=== PATIENT | female | born 1940 | race Caucasian/White ===

== ENCOUNTER 2023-09-29 11:55 | Inpatient (IN) | payer MEDICARE, MEDICAID ==
[~2023-09-29] VITALS: Ht 152.4 cm; Wt 64.0 kg
[~2023-09-29 11:55] MED LIST: CEFT2VIA60 IV; DOXY-354 PO
[2023-09-29] MEDS ORDERED: NALOXONE HCL 1 MG/ML 2 ML SYRINGE IVP ONE (12:00)
[2023-09-29] MEDS ORDERED: FUROSEMIDE 40 MG/4 ML VIAL IVP ONE (12:00)
[2023-09-29 12:22] LABS: ABG CARBOXYHEMOGLOBIN 0.4 % (0.0-1.5); ABG HCO3 18.4 mmol/L (22.0-26.0); ABG METHEMOGLOBIN 0.1 % (0.0-1.5); ABG OXYGEN CONTENT 14.2 mL/dL (15.0-23.0); ABG OXYGEN SATURATION 93.4 % (95.0-98.0); ABG OXYHEMOGLOBIN 92.9 % (94.0-100.0); ABG PCO2 57 mmHg (35-45); ABG PH 7.187 (7.35-7.450); ABG TOTAL HEMOGLOBIN 10.8 G/dL (12.0-18.0); PO2, ARTERIAL BG 64.6 mmHg (71.0-79.0); SOURCE, BLOOD GAS ARTERIAL; TEMPERATURE, FAHRENHEIT, BG 93.5 FAHREN (96.0-98.6)
[2023-09-29 12:23] LABS: O2 DEVICE,BLOOD GAS CANNULA (ROOM AIR); SITE, BLOOD GAS RT BRACHIAL
[2023-09-29 12:36] LABS: BASOPHILS % (AUTO) 0.1 % (0.0-2.0); EOSINOPHILS % (AUTO) 0 % (1.0-6.0); HEMATOCRIT 29.3 % (36-46); HEMOGLOBIN 9.7 g/dL (12.0-16.0); LYMPHOCYTES # (AUTO) 0.1 K/uL (1.0-4.8); MEAN CORPUSCULAR HEMOGLOBIN 30.9 pg (26.0-34.0); MEAN CORPUSCULAR VOLUME 94 fL (80-100); MONOCYTES # (AUTO) 0.4 K/uL (0.1-1.0); MONOCYTES % (AUTO) 5.4 % (2.0-9.0); NEUTROPHILS # (AUTO) 6.8 K/uL (1.8-7.7); PLATELET COUNT (AUTO) 211 K/uL (150-450); RED BLOOD CELL COUNT(AUTO) 3.14 MIL/uL (4.00-5.20); RED CELL DISTRIBUTION WIDTH 14.6 % (11.5-14.5); WHITE BLOOD COUNT (AUTO) 7.3 K/uL (4.5-11.0)
[2023-09-29 12:37] LABS: NEUTROPHILS % (AUTO) 92.5 % (40.0-70.0)
[2023-09-29] MEDS: OXYGEN THERAPY IH SCH ×2 (12:47→20:37)
[2023-09-29 12:51] LABS: LACTIC ACID 0.3 mmol/L (0.4-2.0)
[2023-09-29 12:52] LABS: AMMONIA 36 umol/L (11-32); TROPONIN I-HIGH SENSITIVITY 22 ng/L (<51)
[2023-09-29 12:55] VITALS: PULSE 54; RESP 16; O2SAT 95
[2023-09-29 12:57] LABS: ALBUMIN 2.1 g/dL (3.4-5.0); BILIRUBIN,TOTAL 0.2 mg/dL (0.1-1.0); CREATININE 3.08 mg/dL (0.60-1.30); POTASSIUM 5.6 mmol/L (3.5-5.1); TOTAL PROTEIN, SERUM 6.2 g/dL (6.4-8.2)
[2023-09-29 13:29] LABS: COVID AG,FIA SOURCE NASAL SWAB
[2023-09-29 13:46] LABS: INFLUENZA TYPE A NEGATIVE FOR TYPE A (NEGATIVE); INFLUENZA TYPE B NEGATIVE FOR TYPE B (NEGATIVE)
[2023-09-29 13:47] LABS: SARS-COV2 (COVID) ANTIGEN,FIA Negative (Negative)
[2023-09-29] MEDS ORDERED: BUMETANIDE 0.25 MG/ML 4 ML VIAL IVP ONE (14:30)
[2023-09-29] MEDS ORDERED: BISACODYL 10 MG RECTAL RECTAL SUPPOSITORY PR PRN (14:45)
[2023-09-29] MEDS ORDERED: MAGNESIUM HYDROXIDE SUSPENSION 30 ML UDCUP PO PRN (14:45)
[2023-09-29] MEDS ORDERED: HYDROCODONE/ACETAMINOPHEN 5-325 MG TABLET PO PRN (14:45)
[2023-09-29] MEDS ORDERED: ZOLPIDEM TARTRATE 5 MG TABLET PO PRN (14:45)
[2023-09-29] MEDS ORDERED: MORPHINE SULFATE 2 MG/ML SYRINGE IVP PRN (14:45)
[2023-09-29] MEDS ORDERED: *CLINICAL-LEVOFLOXACIN IVPB DOSING CLINICAL ONE (14:45)
[2023-09-29] MEDS ORDERED: SODIUM POLYSTYRENE SULFONATE 15 GM/60 ML SUSPENSION BOTTLE PR ONE (15:15)
[2023-09-29] MEDS ORDERED: LEVOFLOXACIN 750 MG/D5% WATER 150 ML IV ONE (15:15)
[2023-09-29 16:15] VITALS: PULSE 49; RESP 20; O2SAT 97
[2023-09-29] MEDS: HEPARIN SODIUM,PORCINE 5,000 UNITS/ML VIAL SQ SCH (16:43)
[2023-09-29] MEDS ORDERED: BUMETANIDE 10 MG in DEXTROSE 5%-WATER 60 ML IV SCH (17:15)
[2023-09-29 17:21] LABS: ABG BASE EXCESS -6.6 mmol/L (-2.0-3.0); ABG CARBOXYHEMOGLOBIN 0.1 % (0.0-1.5); ABG HCO3 19.1 mmol/L (22.0-26.0); ABG METHEMOGLOBIN 0.1 % (0.0-1.5); ABG OXYGEN CONTENT 14.4 mL/dL (15.0-23.0); ABG OXYGEN SATURATION 94.5 % (95.0-98.0); ABG OXYHEMOGLOBIN 94.3 % (94.0-100.0); ABG PCO2 42 mmHg (35-45); ABG PH 7.293 (7.35-7.450); ABG TOTAL HEMOGLOBIN 10.8 G/dL (12.0-18.0); PO2, ARTERIAL BG 66.2 mmHg (71.0-79.0); SOURCE, BLOOD GAS ARTERIAL; TEMPERATURE, FAHRENHEIT, BG 94.8 FAHREN (96.0-98.6)
[2023-09-29 17:22] LABS: ABG A-A DIFF O2 172.8 mmHg (10-20.0); ALLEN TEST, BLOOD GAS Positive; O2 DEVICE,BLOOD GAS BIPAP (ROOM AIR); SITE, BLOOD GAS LFT RADIAL
[2023-09-29 17:23] LABS: SPONTANEOUS VT, BG 294 ml
[2023-09-29] MEDS ORDERED: *CLINICAL-CEFEPIME DOSING CLINICAL ONE (18:45)
[2023-09-29 18:50] VITALS: PULSE 64; RESP 27; O2SAT 95
[2023-09-29] MEDS: MetroNIDAZOLE 500 MG/NACL 100 ML IV SCH (20:57)
[2023-09-29] MEDS: DOCUSATE SODIUM 100 MG CAPSULE PO SCH (21:00)
[2023-09-29] MEDS ORDERED: FUROSEMIDE 20 MG/2 ML VIAL IVP SCH (21:00)
[2023-09-29 21:42] LABS: CREATININE 3.13 mg/dL (0.60-1.30); MAGNESIUM 2.2 mg/dL (1.80-2.40); POTASSIUM 5.4 mmol/L (3.5-5.1)
[2023-09-29 22:10] VITALS: PULSE 62; RESP 20; O2SAT 97
[2023-09-29] MEDS: CEFEPIME HCL 1 GM in DEXTROSE 5%-WATER 50 ML IV SCH (22:22)
[2023-09-30] VITALS: BP 130/83; PULSE 80; PULSE 88; RESP 19; TEMP 97.4
[2023-09-30 04:00] VITALS: BP 145/88; PULSE 82; PULSE 88; RESP 26; TEMP 97.5
[2023-09-30] MEDS ORDERED: SODIUM CHLORIDE 0.9% 250 ML IV ONE (04:52)
[2023-09-30] MEDS: MetroNIDAZOLE 500 MG/NACL 100 ML IV SCH ×3 (04:53→20:10)
[2023-09-30 05:37] LABS: BASOPHILS % (AUTO) 0.1 % (0.0-2.0); EOSINOPHILS % (AUTO) 0.1 % (1.0-6.0); HEMATOCRIT 30.7 % (36-46); HEMOGLOBIN 10.2 g/dL (12.0-16.0); LYMPHOCYTES # (AUTO) 0.3 K/uL (1.0-4.8); LYMPHOCYTES % (AUTO) 3.8 % (22.0-44.0); MEAN CORPUSCULAR HEMOGLOBIN 30.5 pg (26.0-34.0); MEAN CORPUSCULAR HGB CONC 33.2 G/dL (31.0-37.0); MEAN CORPUSCULAR VOLUME 92 fL (80-100); MONOCYTES # (AUTO) 0.7 K/uL (0.1-1.0); MONOCYTES % (AUTO) 9.2 % (2.0-9.0); NEUTROPHILS # (AUTO) 6.6 K/uL (1.8-7.7); PLATELET COUNT (AUTO) 250 K/uL (150-450); RED BLOOD CELL COUNT(AUTO) 3.34 MIL/uL (4.00-5.20); RED CELL DISTRIBUTION WIDTH 14.5 % (11.5-14.5); WHITE BLOOD COUNT (AUTO) 7.6 K/uL (4.5-11.0)
[2023-09-30 05:48] LABS: NEUTROPHILS % (AUTO) 86.8 % (40.0-70.0)
[2023-09-30 05:56] LABS: CALCIUM, TOTAL 8.9 mg/dL (8.8-10.5); CREATININE 3.1 mg/dL (0.60-1.30); POTASSIUM 4.6 mmol/L (3.5-5.1); TOTAL PROTEIN, SERUM 6.5 g/dL (6.4-8.2)
[2023-09-30 07:56] LABS: GLUCOSE,POINT OF CARE 139 MG/DL (70-110)
[2023-09-30 08:00] VITALS: BP 133/42; PULSE 78; RESP 26; TEMP 97.8
[2023-09-30] MEDS: CLOPIDOGREL BISULFATE 75 MG TABLET PO SCH (09:14)
[2023-09-30] MEDS: HEPARIN SODIUM,PORCINE 5,000 UNITS/ML VIAL SQ SCH ×3 (09:15→17:01)
[2023-09-30] MEDS: PANTOPRAZOLE SODIUM 40 MG DR TABLET PO SCH (09:15)
[2023-09-30] MEDS: CEFEPIME HCL 1 GM in DEXTROSE 5%-WATER 50 ML IV SCH ×2 (09:15→21:24)
[2023-09-30] MEDS: DOCUSATE SODIUM 100 MG CAPSULE PO SCH ×2 (09:15→20:10)
[2023-09-30 10:29] LABS: INR 1.1 (0.9-1.1); PROTHROMBIN TIME 11.2 SEC (9.4-11.6)
[2023-09-30] MEDS ORDERED: SENN-376 PO (11:07)
[2023-09-30] MEDS ORDERED: BIMA2.5D4 OU (11:07)
[2023-09-30] MEDS ORDERED: CHOL200059 PO (11:07)
[2023-09-30] MEDS ORDERED: BUME1TAB34 PO (11:07)
[2023-09-30] MEDS ORDERED: DOCU-412 PO (11:07)
[2023-09-30] MEDS ORDERED: FERR325T27 PO (11:07)
[2023-09-30] MEDS ORDERED: POLY17PO47 PO (11:07)
[2023-09-30] MEDS ORDERED: ASCO500 PO (11:07)
[2023-09-30] MEDS ORDERED: CLON0.1T2 PO (11:07)
[2023-09-30] MEDS ORDERED: ONDA-104 PO (11:07)
[2023-09-30] MEDS ORDERED: AMLO-258 PO (11:07)
[2023-09-30] MEDS ORDERED: ATOR20TA PO (11:07)
[2023-09-30] MEDS ORDERED: LACT1CAP70 PO (11:07)
[2023-09-30] MEDS ORDERED: INSNOV SQ (11:07)
[2023-09-30] MEDS ORDERED: ASPI-1450 PO (11:07)
[2023-09-30] MEDS ORDERED: CARV25 PO (11:07)
[2023-09-30] MEDS ORDERED: CLOP75TA60 PO (11:07)
[2023-09-30] MEDS ORDERED: INSLAN SQ ×2 (11:07)
[2023-09-30] MEDS ORDERED: HYDR25TA84 PO (11:07)
[2023-09-30] MEDS ORDERED: EPOE10I SQ (11:07)
[2023-09-30] MEDS ORDERED: DORZ10DR6 OU (11:07)
[2023-09-30] MEDS ORDERED: PANT-31 PO (11:07)
[2023-09-30 12:00] VITALS: BP 115/42; PULSE 77; PULSE 78; RESP 31; TEMP 97.8
[2023-09-30 15:01] VITALS: BP 159/78; PULSE 77; RESP 28; TEMP 97.5
[2023-09-30 18:16] LABS: SPECIMENTYPE,BODY FLUID PLEURAL
[2023-09-30] MEDS ORDERED: DEXTROSE 50%-WATER 25 GM/50 ML SYRINGE IVP PRN (19:30)
[2023-09-30 19:31] LABS: APPEARANCE,URINE CLEAR (CLEAR); BILIRUBIN,URINE NEGATIVE (NEGATIVE); COLOR,URINE COLORLESS (YELLOW); GLUCOSE, URINE (UA) NEGATIVE (NEGATIVE); KETONES,URINE NEGATIVE (NEGATIVE); LEUKOCYTE ESTERASE ,URINE NEGATIVE (NEGATIVE); NITRATE,URINE NEGATIVE (NEGATIVE); OCCULT BLOOD,URINE TRACE (NEGATIVE); PROTEIN,URINE TRACE mg/dL (NEGATIVE); SPECIFIC GRAVITIY, URINE 1.009 (1.003-1.030); UROBILINOGEN,URINE <=1.0 mg/dL (<=1.0)
[2023-09-30 19:33] LABS: APPEARANCE,SPUN,BODY FLUID CLEAR (CLEAR); APPEARANCE,UNSPUN,BODY FLUID HAZY (CLEAR); COLOR,BODY FLUID YELLOW (LT YELLOW); TOTAL VOLUME,BODY FLUID 650 mL; WBC, BODY FLUID 87 /cu. mm.
[2023-09-30 19:34] LABS: BASOPHILS,BODY FLUID 0 %; EOSINOPHILS,BF (ANAL) 0 %; LYMPHOCYTES,BODY FLUID 71 %; MONOCYTES,BODY FLUID 2 %; NEUTROPHILS,BODY FLUID 10 %
[2023-09-30 19:35] LABS: OTHER CELLS,BODY FLUID 17; PH, BODY FLUID 8
[2023-09-30 19:51] LABS: BACTERIA,URINE Rare /HPF (None Seen); RBC,URINE 0-2 /HPF (0-2); WBC,URINE 0-2 /HPF (0-5); YEAST,URINE Few /HPF (None Seen)
[2023-09-30 19:52] LABS: AMORPHOUS SEDIMENT,UR Few /LPF (None Seen); SQUAMOUS EPITHELIAL CELL,UR Moderate /LPF (None Seen)
[2023-09-30 20:00] VITALS: BP 162/70; PULSE 78; RESP 20; TEMP 98.2
[2023-09-30] MEDS ORDERED: SODIUM CHLORIDE 0.9% 500 ML IV ONE (20:08)
[2023-09-30] MEDS: INSULIN LISPRO 100 UNITS/ML SQ PRN (20:55)
[2023-09-30 21:41] LABS: GLUCOMETER DEV NAME(LOC) 5S.1B; GLUCOSE,POINT OF CARE 154 MG/DL (70-110)
[2023-10-01] VITALS (11 sets, daily range): BP systolic 137–184; BP diastolic 43–99; PULSE 76–85; RESP 16–19; TEMP 98–98.6; O2SAT 99
[2023-10-01] MEDS: HEPARIN SODIUM,PORCINE 5,000 UNITS/ML VIAL SQ SCH ×3 (00:29→15:52)
[2023-10-01] MEDS: HydrALAZINE HCL 20 MG/ML VIAL IVP PRN ×3 (00:29→21:39)
[2023-10-01] MEDS: MetroNIDAZOLE 500 MG/NACL 100 ML IV SCH ×3 (05:40→20:43)
[2023-10-01 06:44] LABS: BASOPHILS % (AUTO) 0.2 % (0.0-2.0); EOSINOPHILS % (AUTO) 0.6 % (1.0-6.0); HEMATOCRIT 30.8 % (36-46); HEMOGLOBIN 10.2 g/dL (12.0-16.0); LYMPHOCYTES # (AUTO) 0.5 K/uL (1.0-4.8); MEAN CORPUSCULAR HEMOGLOBIN 30.4 pg (26.0-34.0); MEAN CORPUSCULAR VOLUME 92 fL (80-100); MONOCYTES # (AUTO) 0.7 K/uL (0.1-1.0); MONOCYTES % (AUTO) 13.4 % (2.0-9.0); NEUTROPHILS # (AUTO) 4.3 K/uL (1.8-7.7); NEUTROPHILS % (AUTO) 76.8 % (40.0-70.0); PLATELET COUNT (AUTO) 247 K/uL (150-450); RED BLOOD CELL COUNT(AUTO) 3.35 MIL/uL (4.00-5.20); RED CELL DISTRIBUTION WIDTH 14.4 % (11.5-14.5); WHITE BLOOD COUNT (AUTO) 5.6 K/uL (4.5-11.0)
[2023-10-01 06:57] LABS: CALCIUM, TOTAL 8.3 mg/dL (8.8-10.5); CREATININE 3.25 mg/dL (0.60-1.30); MAGNESIUM 1.9 mg/dL (1.80-2.40); PHOSPHORUS 6.1 mg/dL (2.5-4.9); POTASSIUM 4.1 mmol/L (3.5-5.1)
[2023-10-01 08:21] LABS: GLUCOMETER DEV NAME(LOC) 5N.1C; GLUCOSE,POINT OF CARE 120 MG/DL (70-110)
[2023-10-01 08:42] LABS: CHOL/HDL RATIO 2.4 (3.9-5.7)
[2023-10-01] MEDS: ATORVASTATIN CALCIUM 20 MG TABLET PO SCH (09:05)
[2023-10-01] MEDS: CLOPIDOGREL BISULFATE 75 MG TABLET PO SCH (09:05)
[2023-10-01] MEDS: PANTOPRAZOLE SODIUM 40 MG DR TABLET PO SCH (09:05)
[2023-10-01] MEDS: DOCUSATE SODIUM 100 MG CAPSULE PO SCH ×2 (09:05→21:28)
[2023-10-01] MEDS: CEFEPIME HCL 1 GM in DEXTROSE 5%-WATER 50 ML IV SCH ×2 (09:06→21:28)
[2023-10-01 12:27] LABS: GLUCOMETER DEV NAME(LOC) 5N.2C; GLUCOSE,POINT OF CARE 132 MG/DL (70-110)
[2023-10-01] MEDS: ONDANSETRON HCL 4 MG/2 ML VIAL IVP PRN ×2 (13:20→21:48)
[2023-10-01] MEDS: LEVOFLOXACIN 500 MG/D5% WATER 100 ML IV SCH (15:51)
[2023-10-01] MEDS: INSULIN LISPRO 100 UNITS/ML SQ PRN ×2 (17:47→21:39)
[2023-10-01] MEDS ORDERED: SODIUM CHLORIDE 0.9% 1,000 ML IV ONE (20:30)
[2023-10-01 20:46] LABS: GLUCOMETER DEV NAME(LOC) 5N.1C; GLUCOSE,POINT OF CARE 208 MG/DL (70-110)
[2023-10-01] MEDS: ACETAMINOPHEN 325 MG TABLET PO PRN (23:56)
[2023-10-02 00:01] VITALS: BP 169/58; PULSE 83; RESP 18; TEMP 99
[2023-10-02 04:00] VITALS: BP 176/58; PULSE 88; RESP 18; TEMP 98.1
[2023-10-02] MEDS: MetroNIDAZOLE 500 MG/NACL 100 ML IV SCH ×3 (04:32→20:24)
[2023-10-02] MEDS: HydrALAZINE HCL 20 MG/ML VIAL IVP PRN (04:39)
[2023-10-02] MEDS: INSULIN LISPRO 100 UNITS/ML SQ PRN ×3 (06:19→21:21)
[2023-10-02 06:57] LABS: CALCIUM, TOTAL 7.7 mg/dL (8.8-10.5); CREATININE 3.35 mg/dL (0.60-1.30); POTASSIUM 4.2 mmol/L (3.5-5.1)
[2023-10-02 07:00] VITALS: BP 187/69; RESP 19
[2023-10-02 07:00] LABS: BASOPHILS % (AUTO) 0.2 % (0.0-2.0); EOSINOPHILS % (AUTO) 1.5 % (1.0-6.0); HEMATOCRIT 30.7 % (36-46); HEMOGLOBIN 10.1 g/dL (12.0-16.0); LYMPHOCYTES # (AUTO) 0.7 K/uL (1.0-4.8); LYMPHOCYTES % (AUTO) 12.2 % (22.0-44.0); MEAN CORPUSCULAR HEMOGLOBIN 30.6 pg (26.0-34.0); MEAN CORPUSCULAR VOLUME 93 fL (80-100); MONOCYTES # (AUTO) 0.9 K/uL (0.1-1.0); NEUTROPHILS # (AUTO) 4.2 K/uL (1.8-7.7); NEUTROPHILS % (AUTO) 71.1 % (40.0-70.0); PLATELET COUNT (AUTO) 249 K/uL (150-450); RED BLOOD CELL COUNT(AUTO) 3.31 MIL/uL (4.00-5.20); RED CELL DISTRIBUTION WIDTH 14.4 % (11.5-14.5)
[2023-10-02 07:50] VITALS: BP 146/38; PULSE 80; RESP 18; TEMP 98
[2023-10-02] MEDS: PANTOPRAZOLE SODIUM 40 MG DR TABLET PO SCH (09:33)
[2023-10-02] MEDS: ATORVASTATIN CALCIUM 20 MG TABLET PO SCH (09:34)
[2023-10-02] MEDS: CLOPIDOGREL BISULFATE 75 MG TABLET PO SCH (09:35)
[2023-10-02] MEDS: AmLODIPine BESYLATE 5 MG TABLET PO SCH ×2 (09:35→20:24)
[2023-10-02] MEDS: CARVEDILOL 12.5 MG TABLET PO SCH ×2 (09:35→20:24)
[2023-10-02] MEDS: DOCUSATE SODIUM 100 MG CAPSULE PO SCH ×2 (09:36→20:24)
[2023-10-02] MEDS: HEPARIN SODIUM,PORCINE 5,000 UNITS/ML VIAL SQ SCH ×3 (09:38→16:42)
[2023-10-02] MEDS: CEFEPIME HCL 1 GM in DEXTROSE 5%-WATER 50 ML IV SCH ×2 (09:41→21:20)
[2023-10-02 11:03] VITALS: BP 181/74; PULSE 75; RESP 18; TEMP 98.3
[2023-10-02 13:07] LABS: TOTAL PROTEIN,BODY FLUID,REF 1.8 g/dL
[2023-10-02 14:56] LABS: GLUCOMETER DEV NAME(LOC) 5S.1B; GLUCOSE,POINT OF CARE 172 MG/DL (70-110)
[2023-10-02 14:56] LABS: GLUCOMETER DEV NAME(LOC) 5S.1B; GLUCOSE,POINT OF CARE 167 MG/DL (70-110)
[2023-10-02 16:51] LABS: GLUCOMETER DEV NAME(LOC) 5S.2C; GLUCOSE,POINT OF CARE 196 MG/DL (70-110)
[2023-10-02] MEDS ORDERED: LACTULOSE 20 GM/30 ML SOLUTION UDCUP PO ONE (19:00)
[2023-10-02 20:00] VITALS: BP 180/70; PULSE 70; RESP 19; TEMP 98.3
[2023-10-02] MEDS: LOSARTAN POTASSIUM 25 MG TABLET PO SCH (20:24)
[2023-10-02 20:27] LABS: ABG CARBOXYHEMOGLOBIN 0.3 % (0.0-1.5); ABG HCO3 21.1 mmol/L (22.0-26.0); ABG METHEMOGLOBIN 0.3 % (0.0-1.5); ABG OXYGEN CONTENT 13.9 mL/dL (15.0-23.0); ABG OXYGEN SATURATION 96.8 % (95.0-98.0); ABG OXYHEMOGLOBIN 96.2 % (94.0-100.0); ABG PCO2 50 mmHg (35-45); ABG PH 7.281 (7.35-7.450); ABG TOTAL HEMOGLOBIN 10.2 G/dL (12.0-18.0); PO2, ARTERIAL BG 95.9 mmHg (71.0-79.0); SOURCE, BLOOD GAS ARTERIAL; TEMPERATURE, FAHRENHEIT, BG 98.3 FAHREN (96.0-98.6)
[2023-10-02 20:28] LABS: SITE, BLOOD GAS RT BRACHIAL
[2023-10-02 20:29] LABS: ABG A-A DIFF O2 74.5 mmHg (10-20.0); O2 DEVICE,BLOOD GAS CANNULA (ROOM AIR)
[2023-10-03] VITALS (7 sets, daily range): BP systolic 126–153; BP diastolic 44–88; PULSE 63–78; RESP 16–21; TEMP 97.5–98.6
[2023-10-03] MEDS: HEPARIN SODIUM,PORCINE 5,000 UNITS/ML VIAL SQ SCH ×4 (00:34→23:28)
[2023-10-03 00:36] LABS: GLUCOMETER DEV NAME(LOC) 5S.2C; GLUCOSE,POINT OF CARE 227 MG/DL (70-110)
[2023-10-03] MEDS: MetroNIDAZOLE 500 MG/NACL 100 ML IV SCH ×3 (04:30→20:16)
[2023-10-03 06:07] LABS: GLUCOMETER DEV NAME(LOC) 5S.1B; GLUCOSE,POINT OF CARE 197 MG/DL (70-110)
[2023-10-03] MEDS: INSULIN LISPRO 100 UNITS/ML SQ PRN ×4 (06:37→20:39)
[2023-10-03 07:25] LABS: CALCIUM, TOTAL 7.8 mg/dL (8.8-10.5); CREATININE 3.15 mg/dL (0.60-1.30); POTASSIUM 3.9 mmol/L (3.5-5.1)
[2023-10-03] MEDS: CEFEPIME HCL 1 GM in DEXTROSE 5%-WATER 50 ML IV SCH ×2 (08:27→21:52)
[2023-10-03] MEDS: CARVEDILOL 12.5 MG TABLET PO SCH ×2 (08:27→20:17)
[2023-10-03] MEDS: ATORVASTATIN CALCIUM 20 MG TABLET PO SCH (08:27)
[2023-10-03] MEDS: CLOPIDOGREL BISULFATE 75 MG TABLET PO SCH (08:27)
[2023-10-03] MEDS: LOSARTAN POTASSIUM 25 MG TABLET PO SCH ×2 (08:27→20:17)
[2023-10-03] MEDS: PANTOPRAZOLE SODIUM 40 MG DR TABLET PO SCH (08:27)
[2023-10-03] MEDS: DOCUSATE SODIUM 100 MG CAPSULE PO SCH ×2 (08:27→20:17)
[2023-10-03] MEDS: AmLODIPine BESYLATE 5 MG TABLET PO SCH ×2 (08:27→20:17)
[2023-10-03 08:51] LABS: GLUCOMETER DEV NAME(LOC) 5N.2C; GLUCOSE,POINT OF CARE 194 MG/DL (70-110)
[2023-10-03 17:21] LABS: GLUCOMETER DEV NAME(LOC) 5N.1C; GLUCOSE,POINT OF CARE 204 MG/DL (70-110)
[2023-10-03] MEDS: LEVOFLOXACIN 500 MG/D5% WATER 100 ML IV SCH (17:32)
[2023-10-03] MEDS: LACTULOSE 20 GM/30 ML SOLUTION UDCUP PO SCH ×2 (17:32→20:17)
[2023-10-04] VITALS (12 sets, daily range): BP systolic 142–198; BP diastolic 68–80; PULSE 70–85; RESP 20–32; TEMP 97.8–98.9; O2SAT 98–100
[2023-10-04] MEDS: MetroNIDAZOLE 500 MG/NACL 100 ML IV SCH ×3 (03:59→20:36)
[2023-10-04] MEDS: INSULIN LISPRO 100 UNITS/ML SQ PRN ×3 (05:50→20:34)
[2023-10-04 06:40] LABS: GLUCOMETER DEV NAME(LOC) 5N.1C; GLUCOSE,POINT OF CARE 277 MG/DL (70-110)
[2023-10-04 06:41] LABS: GLUCOMETER DEV NAME(LOC) 5N.1C; GLUCOSE,POINT OF CARE 263 MG/DL (70-110)
[2023-10-04 07:43] LABS: CALCIUM, TOTAL 8.4 mg/dL (8.8-10.5); CREATININE 3.19 mg/dL (0.60-1.30); PHOSPHORUS 4.8 mg/dL (2.5-4.9); THYROID STIMULATING HORMONE 3.57 uIU/mL (0.36-3.74)
[2023-10-04] MEDS: LOSARTAN POTASSIUM 25 MG TABLET PO SCH ×2 (08:12→20:26)
[2023-10-04] MEDS: HEPARIN SODIUM,PORCINE 5,000 UNITS/ML VIAL SQ SCH ×2 (08:12→16:02)
[2023-10-04] MEDS: PANTOPRAZOLE SODIUM 40 MG DR TABLET PO SCH (08:12)
[2023-10-04] MEDS: CLOPIDOGREL BISULFATE 75 MG TABLET PO SCH (08:13)
[2023-10-04] MEDS: DOCUSATE SODIUM 100 MG CAPSULE PO SCH ×2 (08:13→20:25)
[2023-10-04] MEDS: AmLODIPine BESYLATE 5 MG TABLET PO SCH ×2 (08:13→20:25)
[2023-10-04] MEDS: CARVEDILOL 12.5 MG TABLET PO SCH ×2 (08:13→20:25)
[2023-10-04] MEDS: ATORVASTATIN CALCIUM 20 MG TABLET PO SCH (08:13)
[2023-10-04] MEDS: LACTULOSE 20 GM/30 ML SOLUTION UDCUP PO SCH ×3 (08:31→20:26)
[2023-10-04 09:11] LABS: GLUCOMETER DEV NAME(LOC) 5N.2C; GLUCOSE,POINT OF CARE 183 MG/DL (70-110)
[2023-10-04] MEDS: CEFEPIME HCL 1 GM in DEXTROSE 5%-WATER 50 ML IV SCH ×2 (10:22→21:54)
[2023-10-04 11:15] LABS: ABG A-A DIFF O2 85.7 mmHg (10-20.0); ABG BASE EXCESS -5.9 mmol/L (-2.0-3.0); ABG CARBOXYHEMOGLOBIN 0.3 % (0.0-1.5); ABG HCO3 19.7 mmol/L (22.0-26.0); ABG METHEMOGLOBIN 0.3 % (0.0-1.5); ABG OXYGEN CONTENT 13.2 mL/dL (15.0-23.0); ABG OXYGEN SATURATION 97.8 % (95.0-98.0); ABG OXYHEMOGLOBIN 97.2 % (94.0-100.0); ABG PCO2 49 mmHg (35-45); ABG PH 7.253 (7.35-7.450); ABG TOTAL HEMOGLOBIN 9.5 G/dL (12.0-18.0); ALLEN TEST, BLOOD GAS Positive; O2 DEVICE,BLOOD GAS CANNULA (ROOM AIR); PO2, ARTERIAL BG 113.5 mmHg (71.0-79.0); SITE, BLOOD GAS LFT RADIAL; SOURCE, BLOOD GAS ARTERIAL; TEMPERATURE, FAHRENHEIT, BG 98.9 FAHREN (96.0-98.6)
[2023-10-04 12:57] LABS: GLUCOMETER DEV NAME(LOC) 5S.2C; GLUCOSE,POINT OF CARE 280 MG/DL (70-110)
[2023-10-04 18:56] LABS: GLUCOMETER DEV NAME(LOC) 5N.1C; GLUCOSE,POINT OF CARE 212 MG/DL (70-110)
[2023-10-04 19:47] LABS: ABG BASE EXCESS -2.3 mmol/L (-2.0-3.0); ABG CARBOXYHEMOGLOBIN 0.2 % (0.0-1.5); ABG HCO3 22.8 mmol/L (22.0-26.0); ABG METHEMOGLOBIN 0.3 % (0.0-1.5); ABG OXYGEN CONTENT 14.2 mL/dL (15.0-23.0); ABG OXYGEN SATURATION 98.7 % (95.0-98.0); ABG OXYHEMOGLOBIN 98.2 % (94.0-100.0); ABG PCO2 37 mmHg (35-45); ABG PH 7.398 (7.35-7.450); ABG TOTAL HEMOGLOBIN 10.1 G/dL (12.0-18.0); SOURCE, BLOOD GAS ARTERIAL; TEMPERATURE, FAHRENHEIT, BG 98.6 FAHREN (96.0-98.6)
[2023-10-04 19:48] LABS: ALLEN TEST, BLOOD GAS Positive; O2 DEVICE,BLOOD GAS BIPAP (ROOM AIR); SITE, BLOOD GAS LFT RADIAL
[2023-10-04 21:31] LABS: GLUCOMETER DEV NAME(LOC) 5S.2C; GLUCOSE,POINT OF CARE 220 MG/DL (70-110)
[2023-10-05] VITALS (12 sets, daily range): BP systolic 141–210; BP diastolic 47–111; PULSE 68–82; RESP 18–26; TEMP 98.4–100.3; O2SAT 94–100
[2023-10-05] MEDS: HEPARIN SODIUM,PORCINE 5,000 UNITS/ML VIAL SQ SCH ×4 (00:08→23:54)
[2023-10-05] MEDS: MetroNIDAZOLE 500 MG/NACL 100 ML IV SCH ×3 (04:06→20:56)
[2023-10-05] MEDS: INSULIN LISPRO 100 UNITS/ML SQ PRN ×3 (06:00→17:24)
[2023-10-05 06:41] LABS: GLUCOMETER DEV NAME(LOC) 5S.1B; GLUCOSE,POINT OF CARE 262 MG/DL (70-110)
[2023-10-05 07:16] LABS: CALCIUM, TOTAL 8.9 mg/dL (8.8-10.5); CREATININE 3.09 mg/dL (0.60-1.30); PHOSPHORUS 3.4 mg/dL (2.5-4.9); POTASSIUM 3.8 mmol/L (3.5-5.1)
[2023-10-05] MEDS: PANTOPRAZOLE SODIUM 40 MG DR TABLET PO SCH (08:34)
[2023-10-05] MEDS: CLOPIDOGREL BISULFATE 75 MG TABLET PO SCH (08:34)
[2023-10-05] MEDS: CARVEDILOL 12.5 MG TABLET PO SCH ×2 (08:34→21:00)
[2023-10-05] MEDS: ATORVASTATIN CALCIUM 20 MG TABLET PO SCH (08:35)
[2023-10-05] MEDS: LOSARTAN POTASSIUM 25 MG TABLET PO SCH ×2 (08:35→21:00)
[2023-10-05] MEDS: AmLODIPine BESYLATE 5 MG TABLET PO SCH ×2 (08:35→21:00)
[2023-10-05] MEDS: CEFEPIME HCL 1 GM in DEXTROSE 5%-WATER 50 ML IV SCH ×2 (08:35→21:29)
[2023-10-05] MEDS: DOCUSATE SODIUM 100 MG CAPSULE PO SCH ×2 (08:35→21:00)
[2023-10-05] MEDS: LACTULOSE 20 GM/30 ML SOLUTION UDCUP PO SCH ×3 (08:35→21:00)
[2023-10-05] MEDS: HydrALAZINE HCL 20 MG/ML VIAL IVP PRN ×2 (11:27→21:28)
[2023-10-05] MEDS: LEVOFLOXACIN 500 MG/D5% WATER 100 ML IV SCH (15:29)
[2023-10-05 20:36] LABS: GLUCOMETER DEV NAME(LOC) 5N.2C; GLUCOSE,POINT OF CARE 334 MG/DL (70-110)
[2023-10-06] VITALS (13 sets, daily range): BP systolic 156–205; BP diastolic 51–80; PULSE 64–90; RESP 16–22; TEMP 97.7–99.6; O2SAT 94–100
[2023-10-06] MEDS ORDERED: LABETALOL HCL 5 MG/ML 20 ML VIAL IVP ONE (00:15)
[2023-10-06] MEDS: MetroNIDAZOLE 500 MG/NACL 100 ML IV SCH ×3 (04:23→19:54)
[2023-10-06] MEDS: HEPARIN SODIUM,PORCINE 5,000 UNITS/ML VIAL SQ SCH ×2 (08:28→16:52)
[2023-10-06] MEDS: LACTULOSE 20 GM/30 ML SOLUTION UDCUP PO SCH ×3 (08:28→20:23)
[2023-10-06] MEDS: CLOPIDOGREL BISULFATE 75 MG TABLET PO SCH (08:29)
[2023-10-06] MEDS: AmLODIPine BESYLATE 5 MG TABLET PO SCH ×2 (08:29→20:23)
[2023-10-06] MEDS: LOSARTAN POTASSIUM 25 MG TABLET PO SCH (08:29)
[2023-10-06] MEDS: CARVEDILOL 12.5 MG TABLET PO SCH ×2 (08:29→20:23)
[2023-10-06] MEDS: PANTOPRAZOLE SODIUM 40 MG DR TABLET PO SCH (08:29)
[2023-10-06] MEDS: ATORVASTATIN CALCIUM 20 MG TABLET PO SCH (08:29)
[2023-10-06] MEDS: DOCUSATE SODIUM 100 MG CAPSULE PO SCH ×2 (08:29→20:23)
[2023-10-06] MEDS: CEFEPIME HCL 1 GM in DEXTROSE 5%-WATER 50 ML IV SCH ×2 (08:30→21:44)
[2023-10-06 08:37] LABS: CALCIUM, TOTAL 8.9 mg/dL (8.8-10.5); CREATININE 2.86 mg/dL (0.60-1.30); POTASSIUM 3.9 mmol/L (3.5-5.1)
[2023-10-06] MEDS: HydrALAZINE HCL 20 MG/ML VIAL IVP PRN ×2 (10:09→16:52)
[2023-10-06] MEDS: INSULIN LISPRO 100 UNITS/ML SQ PRN ×3 (12:58→20:32)
[2023-10-06] MEDS ORDERED: SODIUM CHLORIDE 0.45% 1,000 ML IV SCH (17:15)
[2023-10-06 20:36] LABS: GLUCOMETER DEV NAME(LOC) 5N.1C; GLUCOSE,POINT OF CARE 277 MG/DL (70-110)
[2023-10-06 23:41] LABS: GLUCOMETER DEV NAME(LOC) 5S.1B; GLUCOSE,POINT OF CARE 275 MG/DL (70-110)
[2023-10-07] VITALS (9 sets, daily range): BP systolic 120–204; BP diastolic 46–113; PULSE 63–89; RESP 16–22; TEMP 97.8–99.2; O2SAT 95–98
[2023-10-07 00:51] LABS: GLUCOMETER DEV NAME(LOC) 5N.2C; GLUCOSE,POINT OF CARE 270 MG/DL (70-110)
[2023-10-07 00:51] LABS: GLUCOMETER DEV NAME(LOC) 5N.2C; GLUCOSE,POINT OF CARE 382 MG/DL (70-110)
[2023-10-07] MEDS: MetroNIDAZOLE 500 MG/NACL 100 ML IV SCH ×3 (04:26→21:13)
[2023-10-07] MEDS ORDERED: SODIUM CHLORIDE 0.9% 500 ML IV ONE (04:30)
[2023-10-07] MEDS: HydrALAZINE HCL 20 MG/ML VIAL IVP PRN ×2 (05:00)
[2023-10-07] MEDS: INSULIN LISPRO 100 UNITS/ML SQ PRN ×4 (06:13→22:14)
[2023-10-07 07:11] LABS: CALCIUM, TOTAL 8.5 mg/dL (8.8-10.5); CREATININE 2.84 mg/dL (0.60-1.30); POTASSIUM 3.5 mmol/L (3.5-5.1)
[2023-10-07] MEDS: CEFEPIME HCL 1 GM in DEXTROSE 5%-WATER 50 ML IV SCH ×2 (09:10→22:20)
[2023-10-07] MEDS: LACTULOSE 20 GM/30 ML SOLUTION UDCUP PO SCH ×3 (09:10→21:14)
[2023-10-07] MEDS: HEPARIN SODIUM,PORCINE 5,000 UNITS/ML VIAL SQ SCH ×3 (09:10→15:09)
[2023-10-07] MEDS: CLOPIDOGREL BISULFATE 75 MG TABLET PO SCH (09:10)
[2023-10-07] MEDS: HydrALAZINE HCL 25 MG TABLET PO SCH ×2 (09:11→21:27)
[2023-10-07] MEDS: AmLODIPine BESYLATE 5 MG TABLET PO SCH ×2 (09:11→21:14)
[2023-10-07] MEDS: ATORVASTATIN CALCIUM 20 MG TABLET PO SCH (09:11)
[2023-10-07] MEDS: DOCUSATE SODIUM 100 MG CAPSULE PO SCH ×2 (09:11→21:14)
[2023-10-07] MEDS: PANTOPRAZOLE SODIUM 40 MG DR TABLET PO SCH (09:11)
[2023-10-07] MEDS ORDERED: DEXTROSE 5%-WATER 1,000 ML IV ONE (10:00)
[2023-10-07] MEDS: CARVEDILOL 25 MG TABLET PO SCH ×2 (12:17→21:27)
[2023-10-07 12:32] LABS: GLUCOMETER DEV NAME(LOC) 5S.2C; GLUCOSE,POINT OF CARE 248 MG/DL (70-110)
[2023-10-07 12:32] LABS: GLUCOMETER DEV NAME(LOC) 5S.2C; GLUCOSE,POINT OF CARE 264 MG/DL (70-110)
[2023-10-07] MEDS: LEVOFLOXACIN 500 MG/D5% WATER 100 ML IV SCH (15:09)
[2023-10-07 18:01] LABS: GLUCOMETER DEV NAME(LOC) 5N.2C; GLUCOSE,POINT OF CARE 276 MG/DL (70-110)
[2023-10-07 18:01] LABS: GLUCOMETER DEV NAME(LOC) 5N.2C; GLUCOSE,POINT OF CARE 315 MG/DL (70-110)
[2023-10-07 22:36] LABS: GLUCOMETER DEV NAME(LOC) 5N.2C; GLUCOSE,POINT OF CARE 293 MG/DL (70-110)
[2023-10-07 22:36] LABS: GLUCOMETER DEV NAME(LOC) 5N.2C; GLUCOSE,POINT OF CARE 337 MG/DL (70-110)
[2023-10-08] VITALS (9 sets, daily range): BP systolic 134–189; BP diastolic 42–99; PULSE 57–70; RESP 18–20; TEMP 96.9–98; O2SAT 98–100
[2023-10-08] MEDS ORDERED: MELATONIN 3 MG TABLET PO ONE (00:45)
[2023-10-08] MEDS ORDERED: DiphenhydrAMINE HCL 25 MG CAPSULE PO ONE (00:45)
[2023-10-08] MEDS: HEPARIN SODIUM,PORCINE 5,000 UNITS/ML VIAL SQ SCH ×3 (00:59→15:53)
[2023-10-08] MEDS: MetroNIDAZOLE 500 MG/NACL 100 ML IV SCH ×3 (04:37→20:03)
[2023-10-08] MEDS: INSULIN LISPRO 100 UNITS/ML SQ PRN ×4 (06:56→20:48)
[2023-10-08 07:16] LABS: GLUCOMETER DEV NAME(LOC) 5N.2C; GLUCOSE,POINT OF CARE 248 MG/DL (70-110)
[2023-10-08] MEDS: CEFEPIME HCL 1 GM in DEXTROSE 5%-WATER 50 ML IV SCH ×2 (08:43→21:29)
[2023-10-08] MEDS: DOCUSATE SODIUM 100 MG CAPSULE PO SCH ×2 (08:47→20:56)
[2023-10-08] MEDS: HydrALAZINE HCL 25 MG TABLET PO SCH (08:47)
[2023-10-08] MEDS: LACTULOSE 20 GM/30 ML SOLUTION UDCUP PO SCH ×3 (08:47→21:00)
[2023-10-08] MEDS: CARVEDILOL 25 MG TABLET PO SCH ×2 (08:47→20:56)
[2023-10-08] MEDS: AmLODIPine BESYLATE 5 MG TABLET PO SCH ×2 (08:48→20:56)
[2023-10-08] MEDS: CLOPIDOGREL BISULFATE 75 MG TABLET PO SCH (08:48)
[2023-10-08] MEDS: PANTOPRAZOLE SODIUM 40 MG DR TABLET PO SCH (08:48)
[2023-10-08] MEDS: ATORVASTATIN CALCIUM 20 MG TABLET PO SCH (08:48)
[2023-10-08 09:55] LABS: CALCIUM, TOTAL 8.5 mg/dL (8.8-10.5); CREATININE 2.83 mg/dL (0.60-1.30); MAGNESIUM 1.8 mg/dL (1.80-2.40); PHOSPHORUS 2.4 mg/dL (2.5-4.9); POTASSIUM 3.7 mmol/L (3.5-5.1)
[2023-10-08 17:16] LABS: GLUCOMETER DEV NAME(LOC) 5S.1B; GLUCOSE,POINT OF CARE 321 MG/DL (70-110)
[2023-10-08 18:16] LABS: GLUCOMETER DEV NAME(LOC) 5N.2C; GLUCOSE,POINT OF CARE 278 MG/DL (70-110)
[2023-10-08] MEDS: HydrALAZINE HCL 50 MG TABLET PO SCH (20:56)
[2023-10-08 23:46] LABS: GLUCOMETER DEV NAME(LOC) 5N.1C; GLUCOSE,POINT OF CARE 273 MG/DL (70-110)
[2023-10-09] VITALS (10 sets, daily range): BP systolic 150–165; BP diastolic 56–66; PULSE 54–86; RESP 17–20; TEMP 97.5–98.8; O2SAT 99–100
[2023-10-09] MEDS: HEPARIN SODIUM,PORCINE 5,000 UNITS/ML VIAL SQ SCH ×4 (00:31→23:49)
[2023-10-09] MEDS: ACETAMINOPHEN 325 MG TABLET PO PRN (00:52)
[2023-10-09] MEDS: HydrALAZINE HCL 20 MG/ML VIAL IVP PRN (01:37)
[2023-10-09] MEDS: MetroNIDAZOLE 500 MG/NACL 100 ML IV SCH ×3 (04:44→20:15)
[2023-10-09] MEDS: INSULIN LISPRO 100 UNITS/ML SQ PRN ×4 (05:32→20:30)
[2023-10-09 06:46] LABS: GLUCOMETER DEV NAME(LOC) 5N.1C; GLUCOSE,POINT OF CARE 294 MG/DL (70-110)
[2023-10-09] MEDS: CEFEPIME HCL 1 GM in DEXTROSE 5%-WATER 50 ML IV SCH ×2 (08:05→21:34)
[2023-10-09] MEDS: DOCUSATE SODIUM 100 MG CAPSULE PO SCH ×2 (08:06→20:21)
[2023-10-09] MEDS: CARVEDILOL 25 MG TABLET PO SCH ×2 (08:06→20:22)
[2023-10-09] MEDS: LACTULOSE 20 GM/30 ML SOLUTION UDCUP PO SCH ×3 (08:06→20:22)
[2023-10-09] MEDS: HydrALAZINE HCL 50 MG TABLET PO SCH ×2 (08:06→20:21)
[2023-10-09] MEDS: CLOPIDOGREL BISULFATE 75 MG TABLET PO SCH (08:07)
[2023-10-09] MEDS: AmLODIPine BESYLATE 5 MG TABLET PO SCH ×2 (08:07→20:21)
[2023-10-09] MEDS: ATORVASTATIN CALCIUM 20 MG TABLET PO SCH (08:07)
[2023-10-09] MEDS: PANTOPRAZOLE SODIUM 40 MG DR TABLET PO SCH (08:07)
[2023-10-09 08:39] LABS: CALCIUM, TOTAL 8.6 mg/dL (8.8-10.5); CREATININE 3.03 mg/dL (0.60-1.30); MAGNESIUM 2.2 mg/dL (1.80-2.40); PHOSPHORUS 2.8 mg/dL (2.5-4.9); POTASSIUM 4.3 mmol/L (3.5-5.1)
[2023-10-09] MEDS ORDERED: DEXTROSE 5%-WATER 1,000 ML IV ONE (08:45)
[2023-10-09] MEDS ORDERED: MEGESTROL ACETATE 400 MG/10 ML SUSPENSION UDCUP PO SCH (09:00)
[2023-10-09] MEDS ORDERED: INSULIN GLARGINE,HUM.REC.ANLOG 100 UNITS/ML SQ SCH (09:00)
[2023-10-09] MEDS: SODIUM CHLORIDE 0.45% 1,000 ML IV SCH (09:52)
[2023-10-10] VITALS (10 sets, daily range): BP systolic 128–183; BP diastolic 42–69; PULSE 60–88; RESP 16–19; TEMP 96.8–98.1; O2SAT 95–99
[2023-10-10] MEDS: MetroNIDAZOLE 500 MG/NACL 100 ML IV SCH ×3 (03:40→20:51)
[2023-10-10] MEDS: SODIUM CHLORIDE 0.45% 1,000 ML IV SCH (03:41)
[2023-10-10] MEDS: HydrALAZINE HCL 20 MG/ML VIAL IVP PRN (03:59)
[2023-10-10 04:46] LABS: GLUCOMETER DEV NAME(LOC) 5N.2C; GLUCOSE,POINT OF CARE 261 MG/DL (70-110)
[2023-10-10] MEDS: INSULIN LISPRO 100 UNITS/ML SQ PRN ×2 (05:37→20:57)
[2023-10-10 06:32] LABS: GLUCOMETER DEV NAME(LOC) 5N.1C; GLUCOSE,POINT OF CARE 308 MG/DL (70-110)
[2023-10-10 06:32] LABS: GLUCOMETER DEV NAME(LOC) 5N.1C; GLUCOSE,POINT OF CARE 227 MG/DL (70-110)
[2023-10-10] MEDS ORDERED: INSULIN GLARGINE,HUM.REC.ANLOG 100 UNITS/ML SQ SCH ×2 (09:00)
[2023-10-10] MEDS: HydrALAZINE HCL 50 MG TABLET PO SCH ×3 (09:26→20:53)
[2023-10-10] MEDS: CLOPIDOGREL BISULFATE 75 MG TABLET PO SCH (09:26)
[2023-10-10] MEDS: PANTOPRAZOLE SODIUM 40 MG DR TABLET PO SCH (09:26)
[2023-10-10] MEDS: DOCUSATE SODIUM 100 MG CAPSULE PO SCH ×2 (09:26→20:54)
[2023-10-10] MEDS: CARVEDILOL 25 MG TABLET PO SCH ×2 (09:26→20:53)
[2023-10-10] MEDS: LACTULOSE 20 GM/30 ML SOLUTION UDCUP PO SCH ×3 (09:26→20:54)
[2023-10-10] MEDS: AmLODIPine BESYLATE 5 MG TABLET PO SCH ×2 (09:26→20:53)
[2023-10-10] MEDS: HEPARIN SODIUM,PORCINE 5,000 UNITS/ML VIAL SQ SCH ×2 (09:26→15:08)
[2023-10-10] MEDS: ATORVASTATIN CALCIUM 20 MG TABLET PO SCH (09:26)
[2023-10-10] MEDS: CEFEPIME HCL 1 GM in DEXTROSE 5%-WATER 50 ML IV SCH ×2 (09:26→20:51)
[2023-10-10 10:04] LABS: CALCIUM, TOTAL 8.2 mg/dL (8.8-10.5); CREATININE 3.12 mg/dL (0.60-1.30)
[2023-10-10] MEDS: WATER FOR INJECTION,STERILE 500 ML in DEXTROSE 5%-WATER 500 ML IV SCH (11:13)
[2023-10-10 17:51] LABS: CALCIUM, TOTAL 8.3 mg/dL (8.8-10.5); CREATININE 3.4 mg/dL (0.60-1.30); POTASSIUM 4.2 mmol/L (3.5-5.1)
[2023-10-10 18:41] LABS: GLUCOMETER DEV NAME(LOC) 5N.1C; GLUCOSE,POINT OF CARE 356 MG/DL (70-110)
[2023-10-10 23:36] LABS: GLUCOMETER DEV NAME(LOC) 5S.2C; GLUCOSE,POINT OF CARE 286 MG/DL (70-110)
[2023-10-10 23:36] LABS: GLUCOMETER DEV NAME(LOC) 5S.1B; GLUCOSE,POINT OF CARE 241 MG/DL (70-110)
[2023-10-11] VITALS (10 sets, daily range): BP systolic 115–150; BP diastolic 54–66; PULSE 64–88; RESP 16–20; TEMP 97.3–97.8; O2SAT 95–98
[2023-10-11] MEDS: HEPARIN SODIUM,PORCINE 5,000 UNITS/ML VIAL SQ SCH ×4 (00:11→23:25)
[2023-10-11] MEDS: WATER FOR INJECTION,STERILE 500 ML in DEXTROSE 5%-WATER 500 ML IV SCH ×4 (00:12→23:25)
[2023-10-11] MEDS: MetroNIDAZOLE 500 MG/NACL 100 ML IV SCH ×3 (03:18→19:38)
[2023-10-11 05:26] LABS: GLUCOMETER DEV NAME(LOC) 5S.1B; GLUCOSE,POINT OF CARE 252 MG/DL (70-110)
[2023-10-11] MEDS: HydrALAZINE HCL 50 MG TABLET PO SCH ×3 (05:47→22:33)
[2023-10-11] MEDS: INSULIN LISPRO 100 UNITS/ML SQ PRN ×4 (05:48→21:05)
[2023-10-11 07:31] LABS: CALCIUM, TOTAL 8.2 mg/dL (8.8-10.5); CREATININE 3.2 mg/dL (0.60-1.30); POTASSIUM 4.1 mmol/L (3.5-5.1)
[2023-10-11] MEDS: CEFEPIME HCL 1 GM in DEXTROSE 5%-WATER 50 ML IV SCH ×2 (08:54→21:00)
[2023-10-11] MEDS: CARVEDILOL 25 MG TABLET PO SCH ×2 (08:56→21:00)
[2023-10-11] MEDS: ATORVASTATIN CALCIUM 20 MG TABLET PO SCH (08:57)
[2023-10-11] MEDS: CLOPIDOGREL BISULFATE 75 MG TABLET PO SCH (08:57)
[2023-10-11] MEDS: AmLODIPine BESYLATE 5 MG TABLET PO SCH ×2 (08:57→22:33)
[2023-10-11] MEDS: LACTULOSE 20 GM/30 ML SOLUTION UDCUP PO SCH ×3 (08:57→21:00)
[2023-10-11] MEDS ORDERED: INSULIN GLARGINE,HUM.REC.ANLOG 100 UNITS/ML SQ SCH (09:00)
[2023-10-11] MEDS: PANTOPRAZOLE SODIUM 40 MG DR TABLET PO SCH (09:09)
[2023-10-11] MEDS: DOCUSATE SODIUM 100 MG CAPSULE PO SCH ×2 (09:49→21:00)
[2023-10-11 12:51] LABS: GLUCOMETER DEV NAME(LOC) 5S.2C; GLUCOSE,POINT OF CARE 277 MG/DL (70-110)
[2023-10-11 19:01] LABS: CALCIUM, TOTAL 8.2 mg/dL (8.8-10.5); CREATININE 3.18 mg/dL (0.60-1.30); MAGNESIUM 1.8 mg/dL (1.80-2.40); PHOSPHORUS 3.2 mg/dL (2.5-4.9); POTASSIUM 4.2 mmol/L (3.5-5.1)
[2023-10-11] MEDS ORDERED: DEXTROSE 50%-WATER 25 GM/50 ML SYRINGE IVP PRN ×2 (20:15→20:30)
[2023-10-11 21:36] LABS: GLUCOMETER DEV NAME(LOC) 5N.2C; GLUCOSE,POINT OF CARE 376 MG/DL (70-110)
[2023-10-12] VITALS (10 sets, daily range): BP systolic 115–145; BP diastolic 40–56; PULSE 60–82; RESP 17–28; TEMP 97–98.1; O2SAT 96–99
[2023-10-12] MEDS: MetroNIDAZOLE 500 MG/NACL 100 ML IV SCH ×3 (03:59→20:20)
[2023-10-12] MEDS: HydrALAZINE HCL 50 MG TABLET PO SCH ×3 (05:00→20:25)
[2023-10-12 05:32] LABS: GLUCOMETER DEV NAME(LOC) 5N.1C; GLUCOSE,POINT OF CARE 354 MG/DL (70-110)
[2023-10-12 05:32] LABS: GLUCOMETER DEV NAME(LOC) 5S.1B; GLUCOSE,POINT OF CARE 356 MG/DL (70-110)
[2023-10-12] MEDS: INSULIN LISPRO 100 UNITS/ML SQ PRN ×4 (06:11→21:38)
[2023-10-12] MEDS: CEFEPIME HCL 1 GM in DEXTROSE 5%-WATER 50 ML IV SCH ×2 (08:41→21:34)
[2023-10-12] MEDS: WATER FOR INJECTION,STERILE 500 ML in DEXTROSE 5%-WATER 500 ML IV SCH ×2 (08:41→20:33)
[2023-10-12] MEDS: CARVEDILOL 25 MG TABLET PO SCH ×2 (08:42→20:27)
[2023-10-12] MEDS: CLOPIDOGREL BISULFATE 75 MG TABLET PO SCH (08:42)
[2023-10-12] MEDS: ATORVASTATIN CALCIUM 20 MG TABLET PO SCH (08:42)
[2023-10-12] MEDS: HEPARIN SODIUM,PORCINE 5,000 UNITS/ML VIAL SQ SCH ×2 (08:43→15:18)
[2023-10-12] MEDS: LACTULOSE 20 GM/30 ML SOLUTION UDCUP PO SCH ×3 (08:43→20:25)
[2023-10-12] MEDS: AmLODIPine BESYLATE 5 MG TABLET PO SCH ×2 (08:43→20:24)
[2023-10-12] MEDS: PANTOPRAZOLE SODIUM 40 MG DR TABLET PO SCH (08:43)
[2023-10-12] MEDS: DOCUSATE SODIUM 100 MG CAPSULE PO SCH ×2 (08:44→20:42)
[2023-10-12] MEDS: INSULIN GLARGINE,HUM.REC.ANLOG 100 UNITS/ML SQ SCH (09:28)
[2023-10-12 09:39] LABS: CALCIUM, TOTAL 8.2 mg/dL (8.8-10.5); CREATININE 3.19 mg/dL (0.60-1.30); MAGNESIUM 1.8 mg/dL (1.80-2.40); PHOSPHORUS 3.4 mg/dL (2.5-4.9); POTASSIUM 3.9 mmol/L (3.5-5.1)
[2023-10-12 11:56] LABS: GLUCOMETER DEV NAME(LOC) 5N.1C; GLUCOSE,POINT OF CARE 269 MG/DL (70-110)
[2023-10-12 11:56] LABS: GLUCOMETER DEV NAME(LOC) 5N.1C; GLUCOSE,POINT OF CARE 269 MG/DL (70-110)
[2023-10-12 17:41] LABS: GLUCOMETER DEV NAME(LOC) 5N.1C; GLUCOSE,POINT OF CARE 266 MG/DL (70-110)
[2023-10-12 23:11] LABS: GLUCOMETER DEV NAME(LOC) 5S.2C; GLUCOSE,POINT OF CARE 242 MG/DL (70-110)
[2023-10-13] VITALS (10 sets, daily range): BP systolic 93–151; BP diastolic 35–65; PULSE 47–75; RESP 18–22; TEMP 96.8–97.6; O2SAT 95–98
[2023-10-13] MEDS: HEPARIN SODIUM,PORCINE 5,000 UNITS/ML VIAL SQ SCH ×3 (00:05→16:00)
[2023-10-13] MEDS: HydrALAZINE HCL 50 MG TABLET PO SCH ×2 (04:35→13:00)
[2023-10-13] MEDS: MetroNIDAZOLE 500 MG/NACL 100 ML IV SCH ×2 (04:35→12:29)
[2023-10-13] MEDS: WATER FOR INJECTION,STERILE 500 ML in DEXTROSE 5%-WATER 500 ML IV SCH ×3 (04:45→11:35)
[2023-10-13] MEDS: INSULIN LISPRO 100 UNITS/ML SQ PRN ×3 (06:13→17:36)
[2023-10-13 06:36] LABS: GLUCOMETER DEV NAME(LOC) 5S.2C; GLUCOSE,POINT OF CARE 258 MG/DL (70-110)
[2023-10-13] MEDS: DOCUSATE SODIUM 100 MG CAPSULE PO SCH (09:00)
[2023-10-13] MEDS ORDERED: SODIUM CHLORIDE 0.9% 250 ML IV ONE (09:27)
[2023-10-13] MEDS: ATORVASTATIN CALCIUM 20 MG TABLET PO SCH (09:28)
[2023-10-13] MEDS: CARVEDILOL 25 MG TABLET PO SCH (09:28)
[2023-10-13] MEDS: CEFEPIME HCL 1 GM in DEXTROSE 5%-WATER 50 ML IV SCH (09:28)
[2023-10-13] MEDS: AmLODIPine BESYLATE 5 MG TABLET PO SCH (09:28)
[2023-10-13] MEDS: CLOPIDOGREL BISULFATE 75 MG TABLET PO SCH (09:28)
[2023-10-13] MEDS: PANTOPRAZOLE SODIUM 40 MG DR TABLET PO SCH (09:28)
[2023-10-13] MEDS: LACTULOSE 20 GM/30 ML SOLUTION UDCUP PO SCH ×2 (09:28→16:00)
[2023-10-13] MEDS: INSULIN GLARGINE,HUM.REC.ANLOG 100 UNITS/ML SQ SCH (09:40)
[2023-10-13 10:06] LABS: BASOPHILS % (AUTO) 0.4 % (0.0-2.0); EOSINOPHILS % (AUTO) 2.4 % (1.0-6.0); HEMATOCRIT 25.6 % (36-46); HEMOGLOBIN 8.3 g/dL (12.0-16.0); LYMPHOCYTES # (AUTO) 0.7 K/uL (1.0-4.8); LYMPHOCYTES % (AUTO) 11.1 % (22.0-44.0); MEAN CORPUSCULAR HEMOGLOBIN 30.7 pg (26.0-34.0); MEAN CORPUSCULAR HGB CONC 32.6 G/dL (31.0-37.0); MEAN CORPUSCULAR VOLUME 94 fL (80-100); MONOCYTES # (AUTO) 0.7 K/uL (0.1-1.0); MONOCYTES % (AUTO) 9.8 % (2.0-9.0); NEUTROPHILS # (AUTO) 5.1 K/uL (1.8-7.7); NEUTROPHILS % (AUTO) 76.3 % (40.0-70.0); PLATELET COUNT (AUTO) 143 K/uL (150-450); RED BLOOD CELL COUNT(AUTO) 2.71 MIL/uL (4.00-5.20); RED CELL DISTRIBUTION WIDTH 15.4 % (11.5-14.5); WHITE BLOOD COUNT (AUTO) 6.7 K/uL (4.5-11.0)
[2023-10-13 10:11] LABS: CALCIUM, TOTAL 7.7 mg/dL (8.8-10.5); CREATININE 3.45 mg/dL (0.60-1.30); POTASSIUM 4.3 mmol/L (3.5-5.1)
[2023-10-13 12:02] LABS: GLUCOMETER DEV NAME(LOC) 5N.1C; GLUCOSE,POINT OF CARE 236 MG/DL (70-110)
[2023-10-13] MEDS ORDERED: BUMETANIDE 0.25 MG/ML 4 ML VIAL IVP ONE (13:45)
[2023-10-13] MEDS ORDERED: SODIUM CHLORIDE 0.9% 500 ML IV ONE ×2 (14:15→14:19)
[2023-10-13] MEDS ORDERED: ALBUTEROL SULFATE 2.5 MG/0.5 ML NEB SOLUTION NEB PRN (14:15)
[2023-10-13] MEDS ORDERED: 0.9% SODIUM CHLORIDE 5 ML NEB SOLUTION NEB ONE (14:26)
[2023-10-13] MEDS ORDERED: FUROSEMIDE 20 MG/2 ML VIAL IVP ONE (14:30)
[2023-10-13 20:11] LABS: GLUCOMETER DEV NAME(LOC) 5N.1C; GLUCOSE,POINT OF CARE 246 MG/DL (70-110)
[2023-10-13 20:11] LABS: GLUCOMETER DEV NAME(LOC) 5N.1C; GLUCOSE,POINT OF CARE 224 MG/DL (70-110)
[2023-10-14] MEDS ORDERED: CEFEPIME HCL 1 GM in DEXTROSE 5%-WATER 50 ML IV SCH (10:00)
== END 2023-10-13 20:00 | disposition hospice, home (50) | DRG 193 ==
LOC: EMS 11:57 → ICU 15:54 → 5S 09-30 14:30
PROVIDERS: ADMIT Internal Medicine; ATTEND Internal Medicine
PROC: 5A09357 Assistance with Respiratory Ventilation, Less than 24 Consecutive Hours, Continuous Positive Airway Pressure (ICD-10-PCS; 2023-09-29)
PROC: 0W9B3ZZ Drainage of Left Pleural Cavity, Percutaneous Approach (ICD-10-PCS; principal; 2023-10-01)
PROC: 5A09457 Assistance with Respiratory Ventilation, 24-96 Consecutive Hours, Continuous Positive Airway Pressure (ICD-10-PCS; 2023-10-04)
PROC: 05HB33Z Insertion of Infusion Device into Right Basilic Vein, Percutaneous Approach (ICD-10-PCS; 2023-10-10)
PROC: B54MZZA Ultrasonography of Right Upper Extremity Veins, Guidance (ICD-10-PCS; 2023-10-10)
DX: J18.9 Pneumonia, unspecified organism (principal); G93.41 Metabolic encephalopathy; I50.33 Acute on chronic diastolic (congestive) heart failure; J96.01 Acute respiratory failure with hypoxia; J96.02 Acute respiratory failure with hypercapnia; I13.0 Hypertensive heart and chronic kidney disease with heart failure and stage 1 through stage 4 chronic kidney disease, or unspecified chronic kidney disease; N17.9 Acute kidney failure, unspecified; N18.4 Chronic kidney disease, stage 4 (severe); E87.1 Hypo-osmolality and hyponatremia; N13.30 Unspecified hydronephrosis; E44.0 Moderate protein-calorie malnutrition; E87.29 Other acidosis; E87.0 Hyperosmolality and hypernatremia; J98.11 Atelectasis; N25.81 Secondary hyperparathyroidism of renal origin; J91.8 Pleural effusion in other conditions classified elsewhere; G93.49 Other encephalopathy; E72.20 Disorder of urea cycle metabolism, unspecified; Z66 Do not resuscitate; E11.65 Type 2 diabetes mellitus with hyperglycemia; E11.51 Type 2 diabetes mellitus with diabetic peripheral angiopathy without gangrene; E11.319 Type 2 diabetes mellitus with unspecified diabetic retinopathy without macular edema; G47.33 Obstructive sleep apnea (adult) (pediatric); E11.22 Type 2 diabetes mellitus with diabetic chronic kidney disease; E78.5 Hyperlipidemia, unspecified; I49.3 Ventricular premature depolarization; R62.7 Adult failure to thrive; Z20.822 Contact with and (suspected) exposure to COVID-19; D63.1 Anemia in chronic kidney disease; E87.5 Hyperkalemia; Z86.73 Personal history of transient ischemic attack (TIA), and cerebral infarction without residual deficits; Z68.27 Body mass index [BMI] 27.0-27.9, adult; Z79.899 Other long term (current) drug therapy; Z90.49 Acquired absence of other specified parts of digestive tract
CPT/HCPCS: 32555; 36245; 36569; 36600; 51702; 70450; 71045; 71250; 72192; 74150; 76937; 76942; 80048; 80053; 80061; 81001; 82140; 82465; 82805; 82945; 82962; 83605; 83615; 83690; 83735; 83880; 83986; 84100; 84132; 84145; 84155; 84157; 84443; 84484; 85025; 85610; 85730; 87015; 87040; 87075; 87081; 87101; 87205; 87206; 87804; 89051; 92526; 92610; 93005; 93306; 94640; 94660; 94667; 94668; 97163; 97166; 99291; G0378; J0360; J0692; J1644; J1815; J1940; J1956; J2310; J2405; J3490; J7030; J7040; J7050; J7060; 36415-L1; 36415-TC; 87070; J7613